=== PATIENT | male | born 1985 | race Caucasian/White ===

== ENCOUNTER 2020-01-23 02:25 | Emergency (ER) | payer MEDICAID, SELFPAY ==
[2019-06-18 14:26] VITALS: BMI 23.8
[2020-01-23 02:26] VITALS: BP 151/102; PULSE 97; RESP 16; TEMP 36.6; O2SAT 97; BMI 24.3
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
[2020-01-23 02:55] VITALS: BP 108/88; PULSE 96; RESP 17; O2SAT 98
== END 2020-01-23 06:47 | disposition home or self-care (01) ==
LOC: ED 02:49
PROVIDERS: Emergency Provider Emergency Medicine
DX: F11.20 Opioid dependence, uncomplicated (principal); Z72.89 Other problems related to lifestyle; F17.200 Nicotine dependence, unspecified, uncomplicated
CPT/HCPCS: 99284